=== PATIENT | male | born 1970 | race Caucasian/White ===

== ENCOUNTER 2016-08-05 18:23 | Emergency (ER) | payer BC ==
[2016-08-05 18:35] VITALS: BP 156/95
[2016-08-05] MEDS ORDERED: KETOROLAC TROMETHAMINE 60 MG/2 ML VIAL IM ONE ×2 (19:16→19:26)
[2016-08-05] MEDS ORDERED: ORPHENADRINE CITRATE 30 MG/ML VIAL IM ONE (19:17)
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
[2016-08-05] MEDS ORDERED: ORPHENADRINE CITRATE 30 MG/ML VIAL ONE (19:27)
== END 2016-08-05 21:29 | disposition home or self-care (01) ==
LOC: ER 18:23
DX: S29.019A Strain of muscle and tendon of unspecified wall of thorax, initial encounter (principal); S20.229A Contusion of unspecified back wall of thorax, initial encounter; W10.9XXA Fall (on) (from) unspecified stairs and steps, initial encounter; Y92.009 Unspecified place in unspecified non-institutional (private) residence as the place of occurrence of the external cause